=== PATIENT | male | born 1995 | race Caucasian/White ===

== ENCOUNTER 2017-01-18 19:02 | Emergency (ER) | payer OTHER ==
[~2017-01-18] VITALS: Ht 177.8 cm; Wt 76.0 kg
[2017-01-18 19:05] VITALS: Ht 177.8 cm; Wt 76.0 kg
[2017-01-18] MEDS ORDERED: ONDANSETRON (ODT) 4 MG TAB ODT STA (19:24)
[2017-01-18] MEDS ORDERED: ONDA4TAB14 PO (20:05)
--- NOTE | 2017-01-18 20:15 | ERD ---
ER Documentation Chief Complaint Date/Time DATE: 01/18/17 TIME: 20:12 Chief Complaint vomiting after eating box of m and m, abd pain, hand/facial numbness HPI Patient is a 21-year-old male with no medical problems who presents with vomiting. He said that his feet and hands are numb on both sides. He also said that his face is numb. He said that it started after eating M&Ms today. He felt really bad at 5:40 PM. He said that he took 2 hits of marijuana but has done this in the past and that is not abnormal for him. He has no fevers. He has no abdominal pain. He has had no treatment as of yet. His primary doctor is Dr. Franc Parker. ROS All systems reviewed and are negative except as per history of present illness. Medications Home Meds Active Scripts Ondansetron (Ondansetron Odt) 4 Mg Tab.rapdis, 4 MG PO Q6H Y for NAUSEA AND/OR VOMITING, #30 TAB Prov:DANIELLA GUPTA MD 01/18/17 Allergies Allergies: Coded Allergies: No Known Allergy (Unverified , 04/09/15) PMhx/Soc Medical and Surgical Hx: pt denies Medical Hx, pt denies Surgical Hx Hx Alcohol Use: Yes (beers occasionally) Hx Substance Use: Yes (daily marijuana) Hx Tobacco Use: No Smoking Status: Never smoker FmHx Family History: diabetes Physical Exam Vitals Vital Signs Date Time Temp Pulse Resp B/P Pulse Ox O2 Delivery O2 Flow Rate FiO2 01/18/17 19:05 96.6 100 20 114/66 100 Physical Exam Const: Mild distress Head: Atraumatic Eyes: Normal Conjunctiva ENT: Normal External Ears, Nose and Mouth. Neck: Full range of motion..~ No meningismus. Resp: Clear to auscultation bilaterally Cardio: Regular rate and rhythm, no murmurs Abd: Soft, non tender, non distended. Normal bowel sounds Skin: Pale skin Back: No midline or flank tenderness Ext: No cyanosis, or edema Neur: Awake and alert Psych: Normal Mood and Affect Results 24 hrs Laboratory Tests Test 01/18/17 19:26 Bedside Glucose 129mg/dL Current Medications Medications (Trade) Dose Ordered Sig/Ricky Route PRN Reason Start Time Stop Time Status Last Admin Dose Admin Ondansetron HCl (Zofran Odt) 4 mg ONCE STAT ODT 01/18/17 19:24 01/18/17 19:25 DC 01/18/17 19:37 Procedures/MDM Patient is a 21-year-old male presents with nausea and vomiting. He was having paresthesias of the hands and feet bilaterally. His neurologic exam is normal. His vital signs are normal. At this point I doubt serious bacterial infection. I doubt serious electrolyte abnormality. I believe outpatient management is appropriate. The patient feels better after Zofran. Accu-Chek was normal. The patient can return for any worsening symptoms. He will be given a prescription for Zofran. This may be food poisoning versus a viral syndrome. He should follow-up with Dr. Parker within 24-48 hours for reevaluation. Departure Diagnosis: Primary Impression: Vomiting Vomiting type: unspecified Vomiting Intractability: non-intractable Nausea presence: with nausea Qualified Code: R11.2 - Non-intractable vomiting with nausea, unspecified vomiting type Condition: Fair Patient Instructions: Vomiting (6Y-Adult) Additional Instructions: Call your primary care doctor TOMORROW for an appointment during the next 1-2 days.See the doctor sooner or return here if your condition worsens before your appointment time. DANIELLA GUPTA MD Jan 18, 2017 20:15
== END 2017-01-18 20:13 | disposition home or self-care (01) ==
LOC: FTE 19:02
DX: R11.10 Vomiting, unspecified (principal)
CPT/HCPCS: 82962; Z7610; 99283